=== PATIENT | female | born 1995 | race Caucasian/White ===

== ENCOUNTER 2018-01-02 23:54 | Emergency (ER) | payer SELFPAY ==
[2018-01-03 01:26] LABS: Bilirubin Negative (Negative); Blood, Urine Small (Negative); Clarity CLEAR (Clear); Glucose, Urine (Dipstick) Negative (Negative); Leukocyte Trace (Negative); Nitrite Negative (Negative); Protein, Urine (Dipstick) Negative (Neg-Trace); Specific Gravity, Urine 1.022 (1.002-1.036); Urobilinogen 0.2 mg/dL (0.2-1.0)
[2018-01-03 01:28] LABS: Bacteria/HPF None Seen HPF (None Seen); Hyaline Casts/LPF 0-3 HYALINE CAST LPF (0-3 Hyaline); Pathc Cast-AUWi Flag 0.14 (0-2.49); Squamous Epithelial 0-3 HPF (0-3); WBC/HPF 0-3 HPF (0-3)
[2018-01-03 01:33] LABS: Pregnancy Test - Urine (BHCG) Negative (Negative); Pregu Control Background? CLEAR/WHITE (CLR/WHITE); Pregu Control Bar Appear? YES (CONTROL BAR); Specific Gravity 1.022 (1.002-1.036)
[2018-01-03] MEDS ORDERED: Morphine 4 MG/ML VIAL ONE (02:47)
[2018-01-03] MEDS ORDERED: Ondansetron ODT 4 MG TAB ONE (02:47)
[2018-01-03 03:24] LABS: #Lymphocytes 2.4 thou/uL (1.20-3.40); #Monocytes 0.8 thou/uL (0.11-0.59); #Neutrophils 7.4 thou/uL (1.40-6.50); %Basophils 0.2 % (0.0-1.0); %Eosinophils 0.3 % (0.0-10.0); %Lymphocytes 22.4 % (28.0-48.0); %Monocytes 7.6 % (0.0-4.0); %Neutrophils 69.5 % (31.0-61.0); Hemoglobin 13.5 g/dL (12.0-16.0); Mean Corpuscular HGB CONC 33.7 g/dL (32.0-36.0); Mean Corpuscular Hemoglobin 33.6 pg (25.0-35.0); Mean Corpuscular Volume 99.6 fl (77.0-87.0); Mean Platelet Volume 6.2 fL (7.4-10.4); Platelet Count 328 thou/uL (130-400); RBC Distribution Width 10.7 % (11.5-14.5); Red Blood Cell (RBC) Count 4.02 mill/uL (4.00-5.20); White Blood Cell (WBC) Count 10.6 thou/uL (4.8-10.8)
[2018-01-03 03:40] LABS: ALT (SGPT) 9 U/L (8-55); AST (SGOT) 9 U/L (5-34); Alkaline Phosphatase 83 U/L (40-150); Anion Gap 9 mmol/L (10-20); BUN (Urea Nitrogen) 12 mg/dL (7.0-18.7); Bilirubin, Total 0.2 mg/dL (0.2-1.2); Calc. Creatinine Clearance 0 mL/min (70-130); Calcium 9.2 mg/dL (7.8-10.44); Carbon Dioxide 26 mmol/L (22-29); Chloride 105 mmol/L (98-107); Estimated GFR-MDRD Greater than 90; Globulin 3.2 g/dL (2.4-3.5); Glucose 91 mg/dL (70-105); Protein, Total 7.2 g/dL (6.0-8.3); Sodium 136 mmol/L (136-145)
--- NOTE | 2018-01-03 12:22 | CT ---
PRELIMINARY REPORT/[facility]/EMERGENTY AFTER-HOURS PROCEDURE CT Pelvis With Intravenous Contrast CLINICAL HISTORY: 22 years old, female; Vaginal pain: Er 12; Eval for pelvic abscess; swelling right labia majora, asso ciated with urinary complaints, burning. currently on menstrual cycle TECHNIQUE: Axial computed tomography images of the pelvis with intravenous contrast. Coronal and sagittal reformatted images were created and reviewed. COMPARISON: No relevant prior studies available. FINDINGS: Bowel: Unremarkable. No obstruction. No mucosal thickening. Appendix: No findings to suggest acute appendicitis. Intraperitoneal space: Unremarkable. No free air. No significant fluid collection. Bladder: Unremarkable. No mass. Reproductive: Unremarkable as visualized. Bones/joints: No acute fracture. No dislocation. Soft tissues: Edematous right perineum / right labia majora containing two internal areas of decrease d density measuring approximately 11 x 15 mm and 8 x 11 mm - possible abscesses. Vasculature: Unremarkable. No lower abdominal aortic aneurysm. Lymph nodes: A few prominent inguinal lymph nodes bilaterally. IMPRESSION: Edematous right perineum / right labia majora containing two internal areas of decreased density reny uring approximately 11 x 15 mm and 8 x 11 mm - possible abscesses. Thank you for allowing us to participate in the care of your patient. Dictated and Authenticated by: Wily Walker MD 01/03/2018 4:19 AM Central Time ([place] & [place]) FINAL REPORT CT PELVIS: Date: 01/03/18 Multiple axial tomograms obtained through the pelvis with IV enhancement. FINDINGS/IMPRESSION: There are two low density areas in the right labia consistent with labial abscesses. No abnormality s een within the pelvis. I am in agreement with the preliminary report issued by [facility]. POS: [facility]
== END 2018-01-03 04:48 | disposition home or self-care (01) ==
LOC: ERS 23:54
DX: N76.0 Acute vaginitis (principal); F17.210 Nicotine dependence, cigarettes, uncomplicated
CPT/HCPCS: 36415; 72193; 80053; 81003; 81015; 81025; 83605; 85025; 96361; 96374; J2270; Q0162

== ENCOUNTER 2018-11-18 19:04 | Inpatient (IN) | payer OTHER ==
--- NOTE | 2018-11-17 15:33 | PDOC.LDHP ---
Labor and Delivery H&P Chief complaint: scheduled induction HPI: 23 yo @ 37w0d by LMP c/w 15 week sono who presents for IOL due to GHTN. Antepartum course also complicated by Tobacco use and prior Marijuana use. Rh neg. Current gestational age (weeks): 37 Due date: 12/09/18 Dating criteria: last menstrual period Grav: 1 Para: 0 Current complications: gestational hypertension Abnormal US findings: No Past Medical History: Denies Current medications: pre-joshua vitamins Previous surgical history: other (Tonsillectomy) Allergies/Adverse Reactions: Allergies Allergy/AdvReac Type Severity Reaction Status Date / Time No Known Allergies Allergy Verified 11/18/18 19:32 Social history: tobacco use, drug use - Physical Exam Abnormal vital signs: BP normal - mild range (no severe) General: NAD Heart: RRR Lungs: nonlabored breathing Abdomen: gravid Extremeties: trace edema FHT: category 1 (120s, mod raf, +accels, no decels) [place] contractions every: discontinuous - irregular - Vaginal Exam cm dilated: 1 (cephalic; cook balloon placed 60/60 cc) Effacement: 50% Station: -2 - OB Labs Blood type: O RH: negative Antibody Screen: negative HIV: negative RPR: negative HEPSAg: negative 1 hour GCT: negative GBS: positive Urine drug screen: positive Rubella: immune - Assessment 37 week IUP GHTN Tobacco and THC use Rh neg - Plan Plan: admit to L&D, cervical ripening (s/p cytotec x3, now cook balloon), informed consent obtained, anesthesia consult for pain management -: Pre E labs and UDS done. Rhogam PP if needed.
[2018-11-18 19:35] VITALS: BMI 31.9
[2018-11-18] MEDS ORDERED: Promethazine HCl 25 MG/ML VIAL IM PRN (19:36)
[2018-11-18] MEDS ORDERED: Butorphanol Tartrate 1 MG/ML VIAL SLOW IVP PRN (19:36)
[2018-11-18] MEDS ORDERED: Misoprostol 200 MCG TAB PR PRN (19:36)
[2018-11-18] MEDS ORDERED: Diphenoxylate HCl/Atropine Tablet PO PRN (19:36)
[2018-11-18] MEDS ORDERED: Ibuprofen 800 MG TAB PO PRN (19:36)
[2018-11-18] MEDS ORDERED: Acetaminophen 500 MG TAB PO PRN (19:36)
[2018-11-18] MEDS ORDERED: Lidocaine 1% (PF) 30 ML VIAL SC PRN (19:36)
[2018-11-18] MEDS ORDERED: Carboprost 250 MCG/ML AMP IM PRN (19:36)
[2018-11-18] MEDS ORDERED: HYDROcodone/Acetaminophen 5/325 mg Tablet PO PRN (19:36)
[2018-11-18] MEDS ORDERED: Ondansetron PF 4 MG/2 ML Vial IVP PRN (19:36)
[2018-11-18] MEDS ORDERED: NS / Oxytocin 40 units/1000ml 1,000 ML IV PRN (19:36)
[2018-11-18] MEDS ORDERED: Penicillin G Potassium 5 MILL.UNITS in Sodium Chloride 0.9% 100 ML IVPB SCH (19:45)
[2018-11-18 20:32] LABS: Hemoglobin 12.1 g/dL (12.0-16.0); Mean Corpuscular HGB CONC 33.8 g/dL (32.0-36.0); Mean Corpuscular Hemoglobin 33.7 pg (27.0-31.0); Mean Corpuscular Volume 99.7 fL (78.0-98.0); Mean Platelet Volume 6.8 fL (7.4-10.4); Platelet Count 291 thou/uL (130-400); RBC Distribution Width 11.1 % (11.5-14.5); White Blood Cell (WBC) Count 9.1 thou/uL (4.8-10.8)
--- NOTE | 2018-11-18 20:46 | PDOC.EVN ---
Event Note - Event Note Event Note: at 38 weeks with GHTN here for induction. FHTs reassuring. No UCs seen. Attempted to place Cooks balloon per Dr. Bearden's request. SVE 1/ post, vtx. Pt. unable to tolerate insertion of balloon cath. Will proceed with vaginal cytotec to effect cervical ripening. Dr. Bearden notified.
[2018-11-18 20:52] LABS: ALT (SGPT) 7 U/L (8-55); AST (SGOT) 11 U/L (5-34); Albumin 3.6 g/dL (3.5-5.0); Alkaline Phosphatase 127 U/L (40-150); Anion Gap 9 mmol/L (10-20); BUN (Urea Nitrogen) 10 mg/dL (7.0-18.7); Bilirubin, Total 0.3 mg/dL (0.2-1.2); Calc. Creatinine Clearance 194 mL/min (70-130); Calcium 9.1 mg/dL (7.8-10.44); Carbon Dioxide 26 mmol/L (22-29); Chloride 106 mmol/L (98-107); Estimated GFR-MDRD Greater than 90; Globulin 2.8 g/dL (2.4-3.5); Glucose 90 mg/dL (70-105); Potassium 3.6 mmol/L (3.5-5.1); Protein, Total 6.4 g/dL (6.0-8.3); Sodium 137 mmol/L (136-145)
[2018-11-18] MEDS: Misoprostol 100 MCG TAB VAG SCH (21:06)
[2018-11-18 21:10] LABS: Bilirubin Negative (Negative); Blood, Urine Negative (Negative); Clarity CLEAR (Clear); Glucose, Urine (Dipstick) Negative (Negative); Leukocyte Negative (Negative); Nitrite Negative (Negative); Protein, Urine (Dipstick) Trace mg/dL (Neg-Trace); Specific Gravity, Urine 1.033 (1.002-1.036); pH, Urine 6.5 (5.0-9.0)
[2018-11-18 21:10] LABS: Syphilis Antibody Nonreactive (Nonreactive); Syphilis Antibody Index 0.06 S/CO (<1.00 Non-Reactive)
[2018-11-18 21:11] LABS: Bacteria/HPF None Seen HPF (None Seen); Hyaline Casts/LPF 0-3 HYALINE CAST LPF (0-3 Hyaline); Pathc Cast-AUWi Flag 0.95 (0-2.49); Squamous Epithelial 0-3 HPF (0-3); WBC/HPF 0-3 HPF (0-3)
[2018-11-18 21:18] LABS: Amphetamine Not Detected (NotDetected); Barbiturates Screen Not Detected (NotDetected); Benzodiazepine Screen Not Detected (NotDetected); Cocaine Metabolite Screen Not Detected (NotDetected); Medtox Control Line Valid? VALID (VALID); Medtox Reader # READER 1; Methadone Not Detected (NotDetected); Methamphetamine Not Detected (NotDetected); Opiate Screen Not Detected (NotDetected); Oxycodone Screen Not Detected (NotDetected); Phencyclidine (PCP) Not Detected (NotDetected); THC/Cannabinoid Screen Not Detected (NotDetected); Tricyclic Screen Not Detected (NotDetected)
[2018-11-19 00:46] LABS: HBSAg Index 0.22 S/CO (0-0.99); HIV (1/2) Antibody/Antigen Non-Reactive (NonReactive); HIV 1/2 INDEX 0.14 S/CO (<1.00); Hep B Surf Ag Non-Reactive S/CO (NonReactive)
[2018-11-19] MEDS: Misoprostol 100 MCG TAB VAG SCH ×2 (01:19→05:30)
[2018-11-19] MEDS ORDERED: Bupivacaine 0.25% HCL 30 ML VIAL ONE (09:00)
[2018-11-19] MEDS ORDERED: Lidocaine 2% MPF 10 ML AMP (For Epidural Use) ONE (09:00)
[2018-11-19] MEDS: NS w/ Oxytocin 10 units 500 ML IV SCH (09:41)
[2018-11-19] MEDS ORDERED: Fentanyl 4 mcg/Bup 0.1% Cadd 100 ML ONE (09:59)
[2018-11-19] MEDS ORDERED: Lidocaine 1.5%/Epinephrine 1:200,000 5 ML AMPUL IJ ONE (10:00)
[2018-11-19] MEDS: Lactated Ringer's 1,000 ML IV SCH (10:29)
[2018-11-19] MEDS ORDERED: Promethazine HCl 25 MG/ML VIAL IM PRN (11:16)
[2018-11-19] MEDS ORDERED: diphenhydrAMINE 50 MG/ML VIAL IVP PRN (11:16)
[2018-11-19] MEDS ORDERED: Lactated Ringer's 500 ML IV PRN (11:16)
[2018-11-19] MEDS ORDERED: ePHEDrine/0.9% NaCl/PF SYRINGE 50 mg/10 ml SLOW IVP PRN (11:16)
[2018-11-19] MEDS ORDERED: Acetaminophen 325 MG TAB PO PRN (11:16)
[2018-11-19] MEDS ORDERED: Ondansetron PF 4 MG/2 ML Vial IVP PRN (11:16)
[2018-11-19] MEDS ORDERED: Naloxone HCl 0.4 mg/ml Vial IVP PRN ×2 (11:16)
[2018-11-19] MEDS ORDERED: Eucerin (Mineral Oil/Petrolatum,White) 30 gm Jar TOP PRN (11:16)
[2018-11-19] MEDS ORDERED: Communication Order-Pharmacy FS SCH (11:30)
--- NOTE | 2018-11-19 11:49 | PDOC.LDPN ---
Labor & Delivery Progress Note - Subjective Subjective: comfortable - Objective Vital signs reviewed and normal: yes General: NAD Uterine fundus: non tender Dilation: 5 Effacement: 75% Station: -2 FHT: category 2 ( decel with renata to 60s x 4-5 min; recovery to 150s with minimal variabiliy; now good variabiliy with accel with AROM ) [place] contractions every: not tracing well, IUPC placed AROM: bloody fluid IUPC placed: yes FSE placed: yes Resuscitative measures: maternal IV fluids, maternal position change - Assessment (1) 37 weeks gestation of Code(s): Z3A.37 - 37 WEEKS GESTATION OF Current Visit: Yes Status : Acute (2) Gestational hypertension Code(s): O13.9 - GESTATIONAL HTN W/O SIGNIFICANT PROTEINURIA, UNSP TRIMESTER Current Visit: Yes Status: Acute Plan: continue plan of care, resuscitative measures -: AROM done. Internals placed. May need to restart pitocin. Continue to monitor. BPs wnl, adryan after epidural.
[2018-11-19] MEDS: Penicillin G 2.5 MILL.units 2.5 MILL.UNITS in Premix Bag 1 BAG IVPB SCH (14:23)
[2018-11-19] MEDS ORDERED: Lidocaine 1% (PF) 30 ML VIAL ONE (17:08)
[2018-11-19] MEDS ORDERED: NS / Oxytocin 40 units/1000ml 1,000 ML ONE (17:08)
--- NOTE | 2018-11-19 18:26 | PDOC.OPDEL ---
OB Operative/Delivery Note Delivery Dr/Surgeon: Radha Sánchez DO Pre-Delivery Diagnosis: medically indicated induction (GHTN) Procedure/Post Delivery Dx: spontaneous vaginal delivery Weeks gestation: 37 Anesthesia: epidural - Findings A Sex: female - 1 min: 9 - 5 min: 9 - Additional Findings/Plan Placenta delivered: spontaneous Repaired Obstetrical Laceration: other (Right labial that extended to right vaginal wall) Estimated blood loss: EBL 250 cc, QBL 236 cc Compilations/Other Findings: Infant in cephalic presentation. TYSON position. Normal appearing placenta. Post delivery plan: routine recovery
[2018-11-19] MEDS ORDERED: Bisacodyl 10 MG SUPP PR PRN (18:37)
[2018-11-19] MEDS ORDERED: Milk Of Magnesia 30 ML UDCUP PO PRN (18:37)
[2018-11-19] MEDS ORDERED: HYDROcodone/Acetaminophen 5/325 mg Tablet PO PRN (18:37)
[2018-11-19] MEDS ORDERED: NS / Oxytocin 40 units/1000ml 1,000 ML IV SCH (18:37)
[2018-11-19] MEDS ORDERED: Benzocaine/Menthol 20-0.5% 60 ML CAN TOP PRN (18:37)
[2018-11-19] MEDS: Docusate Calcium (SURFAK) 240 MG CAP PO SCH (22:23)
[2018-11-19] MEDS: Ibuprofen 800 MG TAB PO SCH (22:24)
[2018-11-19] MEDS ORDERED: Sodium Chloride 0.9% 10 ML ONE (23:25)
[2018-11-20] MEDS: NS w/ Oxytocin 10 units 500 ML IV SCH (01:58)
[2018-11-20] MEDS: Lactated Ringer's 1,000 ML IV SCH (01:59)
[2018-11-20] MEDS: Penicillin G 2.5 MILL.units 2.5 MILL.UNITS in Premix Bag 1 BAG IVPB SCH ×2 (01:59→02:00)
[2018-11-20] MEDS: Misoprostol 100 MCG TAB VAG SCH (02:00)
[2018-11-20] MEDS: Ibuprofen 800 MG TAB PO SCH ×3 (05:21→21:03)
[2018-11-20 07:26] LABS: Hemoglobin 10.5 g/dL (12.0-16.0); Mean Corpuscular HGB CONC 33.6 g/dL (32.0-36.0); Mean Corpuscular Hemoglobin 33.9 pg (27.0-31.0); Mean Platelet Volume 6.8 fL (7.4-10.4); Platelet Count 229 thou/uL (130-400); RBC Distribution Width 11.1 % (11.5-14.5); White Blood Cell (WBC) Count 9.3 thou/uL (4.8-10.8)
[2018-11-20] MEDS: Ferrous Sulfate 325 MG TAB PO SCH ×2 (08:29→15:31)
[2018-11-20] MEDS: Prenatal Vitamin 1 TAB PO SCH (08:37)
[2018-11-20] MEDS: Docusate Calcium (SURFAK) 240 MG CAP PO SCH ×2 (08:37→21:03)
--- NOTE | 2018-11-20 11:48 | PDOC.PP ---
Post Progress Note Post Day #: 1 Subjective: No concerns. Moderat lochia. Breast feeding. Voiding. PO intake tolerated: yes Flatus: yes Ambulation: yes Vital Signs (12 hours) Temp Pulse Resp BP Pulse Ox 11/20/18 08:35 99 11/20/18 08:18 97.9 F 66 20 130/71 99 11/20/18 04:00 98.1 F 88 16 113/64 Weight Weight 210 lb - Physical Examination General: NAD Cardiovascular: RRR Respiratory: non-labored breathing Abdominal: no distention, appropriately TTP Fundus firm & at: below umbilicus Extremities: negative homans (B) Neurological: no gross focal deficits Psychiatric: A&Ox3, normal affect Result Diagrams: 11/20/18 07:02 11/18/18 20:03 Additional Labs: Post Labs Blood Type O NEGATIVE 11/18/18 21:20 Hep Bs Antigen Non-Reactive S/CO (NonReactive) 11/18/18 20:03 (1) 37 weeks gestation of Code(s): Z3A.37 - 37 WEEKS GESTATION OF Status: Resolved (2) Gestational hypertension Code(s): O13.9 - GESTATIONAL HTN W/O SIGNIFICANT PROTEINURIA, UNSP TRIMESTER Status: Resolved (3) Vaginal delivery Code(s): O80 - ENCOUNTER FOR FULL-TERM UNCOMPLICATED DELIVERY Status: Acute (4) Rh negative status during Code(s): O26.899 - OTH RELATED CONDITIONS, UNSPECIFIED TRIMESTER; Z67.91 - UNSPECIFIED BLOOD TYPE, RH NEGATIVE Status: Acute - Assessment/Plan PPD1 VSSAF, BP wnl. Anemia appropriate for EBL Rh neg, s/p rhogam Continue PP care, Plan for d/c home tomorrow.
[2018-11-21] MEDS: NS w/ Oxytocin 10 units 500 ML IV SCH (04:49)
[2018-11-21] MEDS: Ibuprofen 800 MG TAB PO SCH ×2 (05:43→13:12)
[2018-11-21 08:18] VITALS: BP 125/79; TEMP 98.1
[2018-11-21] MEDS: Ferrous Sulfate 325 MG TAB PO SCH (09:35)
--- NOTE | 2018-11-21 10:22 | PDOC.PP ---
Post Progress Note Post Day #: 2 Subjective: Minimal pain and lochia. Breast feeding. No concerns. Denies preE sx PO intake tolerated: yes Flatus: yes Ambulation: yes Vital Signs (12 hours) Temp Pulse Resp BP Pulse Ox 11/21/18 08:17 98.1 F 83 20 125/79 99 11/21/18 08:00 99 Weight Weight 210 lb - Physical Examination General: NAD Cardiovascular: RRR Respiratory: non-labored breathing Abdominal: no distention, appropriately TTP Fundus firm & at: below umbilicus Extremities: negative homans (B) Neurological: no gross focal deficits Psychiatric: A&Ox3, normal affect Result Diagrams: 11/20/18 07:02 11/18/18 20:03 Additional Labs: Post Labs Blood Type O NEGATIVE 11/18/18 21:20 Hep Bs Antigen Non-Reactive S/CO (NonReactive) 11/18/18 20:03 (1) 37 weeks gestation of Code(s): Z3A.37 - 37 WEEKS GESTATION OF Status: Resolved (2) Gestational hypertension Code(s): O13.9 - GESTATIONAL HTN W/O SIGNIFICANT PROTEINURIA, UNSP TRIMESTER Status: Resolved (3) Vaginal delivery Code(s): O80 - ENCOUNTER FOR FULL-TERM UNCOMPLICATED DELIVERY Status: Acute (4) Rh negative status during Code(s): O26.899 - OTH RELATED CONDITIONS, UNSPECIFIED TRIMESTER; Z67.91 - UNSPECIFIED BLOOD TYPE, RH NEGATIVE Status: Acute - Assessment/Plan PPD 2 VSSAF, BP wnl. Stable for d/c home. s/p Rhogam.
[2018-11-21] MEDS: Docusate Calcium (SURFAK) 240 MG CAP PO SCH (10:37)
[2018-11-21] MEDS: Prenatal Vitamin 1 TAB PO SCH (10:37)
[2018-11-21] MEDS ORDERED: Measles/Mumps/Rubella 10 MCG/0.5 ML VIAL SC ONE (13:00)
== END 2018-11-21 13:25 | disposition home or self-care (01) | DRG 807 ==
LOC: L&D 19:04 → 3SW 11-19 21:00
PROVIDERS: ADMIT Obstetrics & Gynecology; ATTEND Obstetrics & Gynecology
PROC: 10E0XZZ Delivery of Products of Conception, External Approach (ICD-10-PCS; principal; 2018-11-18)
PROC: 10907ZC Drainage of Amniotic Fluid, Therapeutic from Products of Conception, Via Natural or Artificial Opening (ICD-10-PCS; 2018-11-18)
PROC: 0UQGXZZ Repair Vagina, External Approach (ICD-10-PCS; 2018-11-18)
DX: O13.4 Gestational [pregnancy-induced] hypertension without significant proteinuria, complicating childbirth (principal); Z37.0 Single live birth; O99.324 Drug use complicating childbirth; F12.90 Cannabis use, unspecified, uncomplicated; O99.334 Smoking (tobacco) complicating childbirth; F17.200 Nicotine dependence, unspecified, uncomplicated; O71.4 Obstetric high vaginal laceration alone; O26.893 Other specified pregnancy related conditions, third trimester; O99.02 Anemia complicating childbirth; D64.9 Anemia, unspecified; Z67.91 Unspecified blood type, Rh negative; Z3A.37 37 weeks gestation of pregnancy; Z90.89 Acquired absence of other organs
CPT/HCPCS: 36415; 51702; 80053; 80306; 81001; 85027; 85461; 86780; 86850; 86870; 86900; 86901; 87340; 87389; 90384; 90471; 90732; 96372; C1726; G0009; J0595; J1200; J2001; J2405; J2540; J3490; J7050; S0020